=== PATIENT | female | born 1960 | race Caucasian/White ===

== ENCOUNTER 2024-07-06 17:10 | Inpatient (IN) | payer OTHER, MEDICARE, SELFPAY ==
[2024-07-06] VITALS (19 sets, daily range): BP systolic 97–177; BP diastolic 68–97; PULSE 60–91; TEMP 36.4–36.6; O2SAT 86–100; BMI 25.2; BMI 26.3
--- NOTE | 2024-07-06 11:31 | XR_ITS ---
The [address] [address] Patient Name: NETO GASTON MRN: [id number] date: 1960 Sex: F Assigned Patient Location: ER Current Patient Location: ER Accession/Order Number: [id number] Exam Date: 07/06/2024 11:35 Report Date: 07/06/2024 11:57 At the request of: JULIETA BLACKWELL Procedure: XR hip LT 2V w/ pelvis EXAM: XR hip LT 2V w/ pelvis HISTORY: fall COMPARISON: None. TECHNIQUE: AP pelvis and AP and crosstable lateral views of the left hip performed. FINDINGS: There is an acute mildly impacted intertrochanteric fracture of the left femur. Both hip joints are maintained. The lower lumbar spine, sacrum and bilateral sacral joints are unremarkable. There are degenerative changes at the symphysis which is otherwise unremarkable. XR/XR hip LT 2V w/ pelvis IMPRESSION: There is an acute mildly impacted intertrochanteric fracture of the left femur. Electronically authenticated by: JOSE MARIA MEAD Date: 07/06/2024 11:57
--- NOTE | 2024-07-06 11:32 | ED.LOWEXI1 ---
HPI HPI - Extremity Injury (Lower) General Chief Complaint: Extremity Injury, Lower Stated Complaint: FELL ON LEFT HIP Time Seen by Provider: 07/06/24 11:28 Source: patient Mode of arrival: ambulance Limitations: no limitations History of Present Illness HPI Narrative: 64-year-old female presents to the emergency department for pain to her left hip. She slipped shoveling some snow today and landed on her hip. No other injury, she did not hit her head. She was transported here by paramedics and this happened just before coming into the emergency department. Related Data Home Medications ?Medication ?Instructions ?Recorded ?Confirmed atorvastatin 40 mg tablet 40 mg PO DAILY 07/06/24 07/06/24 gabapentin 100 mg capsule 200 mg PO BEDTIME 07/06/24 07/06/24 losartan 25 mg tablet 25 mg PO DAILY 07/06/24 07/06/24 metformin 500 mg tablet 1,000 mg PO BID 07/06/24 07/06/24 Allergies Allergy/AdvReac Type Severity Reaction Status Date / Time No Known Drug Allergies Allergy Verified 07/06/24 11:25 Opioid HPI Opioid Management Most Recent Pain and Opioid Data: Last Pain Scale 6 07/06/24 11:36 07/06/24 Review of Systems ROS Narrative A ten point review of systems is negative except as noted above. PFSH PFSH Social History Little interest or pleasure in doing things: not at all Feeling down, depressed, or hopeless: not at all Exam Narrative Exam Narrative: Nurses note and vital signs reviewed and patient is not hypoxic. General: The patient appears in no apparent distress. Skin: Warm, dry, no pallor noted. There is no rash noted. Head: Normocephalic, atraumatic Eye: Normal conjunctiva, no drainage Ears, Nose, Mouth, and Throat: oral mucosa is moist. Nares patent. Cardiovascular: Regular Rate and Rhythm Respiratory: Patient is in no distress, no accessory muscle use, lungs are clear to auscultation, no wheezing, rales or rhonchi Back: non-tender GI: Soft and nontender Musculoskeletal: Both hips and both knees are flexed. No obvious deformity in the hip Neurological: A&O, normal speech Psychiatric: Cooperative Constitutional Vital Signs, click to edit/add: Last Vital Signs Temp 97.7 F 07/06/24 11:26 Pulse 75 07/06/24 11:26 Resp 16 07/06/24 11:26 BP 162/83 H 07/06/24 11:26 Pulse Ox 100 07/06/24 11:26 O2 Del Method Room Air 07/06/24 11:26 Course Vital Signs Vital signs: Vital Signs Temperature 97.7 F 07/06/24 11:26 Pulse Rate 75 07/06/24 11:26 Respiratory Rate 16 07/06/24 11:26 Blood Pressure 162/83 H 07/06/24 11:26 Pulse Oximetry 100 07/06/24 11:26 Oxygen Delivery Method Room Air 07/06/24 11:26 Temperature 97.7 F 07/06/24 11:26 Pulse Rate 75 07/06/24 11:26 Respiratory Rate 16 07/06/24 11:26 Blood Pressure 162/83 H 07/06/24 11:26 Pulse Oximetry 100 07/06/24 11:26 Oxygen Delivery Method Room Air 07/06/24 11:26 MDM - Extremity Injury (Lower) MDM Narrative Medical decision making narrative: Left hip fracture is identified, intertrochanteric. She will be admitted for presumed operative repair. Blood work ordered and pending and she was given IV morphine for pain. Findings were discussed with the patient. Differential Diagnosis Differential diagnosis: Likely other (Hip fracture, hip contusion) Imaging Data Left hip x-ray: Radiologist's impression: ITS Impressions Hip/Pelvis X-Ray 07/06/24 11:31 IMPRESSION: There is an acute mildly impacted intertrochanteric fracture of the left femur. Electronically authenticated by: JOSE MARIA MEAD Date: 07/06/2024 11:57 Discharge Plan Discharge Chief Complaint: Extremity Injury, Lower Clinical Impression: Closed left hip fracture Patient Disposition: Admitted As Inpatient Time of Disposition Decision: 12:06 Condition: Fair
--- NOTE | 2024-07-06 12:04 | ECG_ITS ---
The [facility] Test Date: 2024-07-06 Pat Name: NETO GASTON Department: Room: - Gender: Female [employer]: : 1960 Requested By: [id number] Order Number: [id number] Reading MD: JASMIN MENDEZ Measurements Intervals [place] Rate: 74 P: 68 MO: 158 QRS: 63 QRSD: 82 T: 63 QT: 392 QTc: 419 Interpretive Statements 1100 Sinus rhythm 9110 normal ECG No previous ECG available for comparison Electronically Signed On 07-06-2024 20:27:51 EST by JASMIN MENDEZ
[2024-07-06] MEDS: MORPHINE SULFATE 4 MG/ML VIAL IV (12:20)
[2024-07-06 12:22] LABS: Basophils Percent Auto 0.3 % (0.2-2.0); Hematocrit 31.8 % (36.0-48.0); Hemoglobin 10.7 g/dL (12.0-16.0); Immature Granulocytes Abs Auto 0.02 10^3/uL (0.00-0.03); Immature Granulocytes Pct Auto 0.3 % (0.0-0.5); Lymphocytes Absolute Auto 1.2 10^3/uL (1.2-3.8); Lymphocytes Percent Auto 14.9 % (20.5-60.0); Mean Corpuscular HGB Conc 33.6 g/dL (29.9-35.2); Mean Corpuscular Hemoglobin 29.8 pg (26.7-34.0); Mean Corpuscular Volume 88.6 fL (81.0-99.0); Mean Platelet Volume 10.8 fL (9.5-13.5); Monocytes Absolute Auto 0.4 10^3/uL (0.3-0.8); Monocytes Percent Auto 5.4 % (1.7-12.0); Neutrophils Absolute Auto 6.1 10^3/uL (1.4-6.5); Neutrophils Percent Auto 79.1 % (43.0-75.0); Platelet Count 183 10^3/uL (150-450); Red Blood Count 3.59 10^6/uL (4.20-5.40); Red Cell Distribution Width 12.6 % (11.0-15.0); White Blood Count 7.8 10^3/uL (4.0-11.0)
[2024-07-06 12:36] LABS: Anion Gap 14.8; BUN Creatinine Ratio 15.5; Calcium 9.2 mg/dL (8.5-10.1); Carbon Dioxide 26.2 mmol/L (21.0-32.0); Chloride 101 mmol/L (98-107); Estimated GFR (African America 50 (>=60 mL/min/1.73m^2); Estimated GFR (Non-African Ame 41 (>=60 mL/min/1.73m^2); Glucose 139 mg/dL (74-106); Sodium 138 mmol/L (136-145)
[2024-07-06 12:51] LABS: INR 1.03; Partial Thromboplastin Time 23.4 sec (22.3-36.2); Prothrombin Time 10.9 sec (9.0-11.6)
[2024-07-06] MEDS: LACTATED RINGER'S SOLUTION 1,000 ML 100 ML IV ×2 (13:11→23:57)
--- NOTE | 2024-07-06 14:01 | P.HP_ITS ---
HPI H&P: HPI History of Present Illness Chief complaint: FELL ON LEFT HIP Narrative: 64 y o female fell while shoveling snow. She could not get up afterwards and was brought over via EMS. Patient denies head trauma, LOC. Her only complaint was left hip pain and work up in ED revealed mildly impacted intertrochanteric fracture. Orthopedic consulted and patient is scheduled for Orthopedic surgery today. Patient's past medical, surgical and social hx reviewed. She denies any r ecent surgery and last time she required anesthesia was during C section over 20 years ago. She denies hx of CAD/CHF or CVA. She is at low risk of MACE and is medically cleared to proceed with Surgery. Opioid HPI Opioid Management Most Recent Pain and Opioid Data: Last Pain Scale 6 07/06/24 12:20 07/06/24 Last MAR Pain Assessment 07/06/24 12:20 Review of Systems ROS Status of ROS 10 or more systems reviewed and unremark able except as noted in history and below PFSH [facility] Medical History (Updated 07/06/24 @ 14:06 by Shaikh Axel MD) HLD (hyperlipidemia) ?E78.5 - Hyperlipidemia, unspecified (ICD-10) Type 2 diabetes mellitus ?E11.9 - Type 2 diabetes mellitus without complications (ICD-10) HTN (hypertension) ?I10 - Essential (primary) hypertension (ICD-10) Surgical History (Updated 07/06/24 @ 14:05 by Shaikh Axel MD) H/O: ?Z98.891 - History of uterine scar from previous surgery (ICD-10) Social History (Updated 07/06/24 @ 14:06 by Shaikh Axel MD) Within the past year, how often did you have a drink containing alcohol: never Within the past year, how many standard drinks containing alcohol did you have on a typical day: 1 or 2 Within the past year, how often did you have six or more drinks on one occasion: never Total score: 0 Score interpretation: A score less than 3 is consistent with normal alcohol consumption. Smoking status: Never smoker Non-prescribed substance use: denies use Little interest or pleasure in doing things: not at all Feeling down, depressed, or hopeless: not at all Meds Home Medications and Allergies Home Medications ?Medication ?Instructions ?Recorded ?Confirmed ?Type atorvastatin 40 mg tablet 40 mg PO DAILY 07/06/24 07/06/24 History gabapentin 100 mg capsule 200 mg PO BEDTIME 07/06/24 07/06/24 History losartan 25 mg tablet 25 mg PO DAILY 07/06/24 07/06/24 History metformin 500 mg tablet 1,000 mg PO BID 07/06/24 07/06/24 History Allergies Allergy/AdvReac Type Severity Reaction Status Date / Time No Known Drug Allergies Allergy Verified 07/06/24 11:25 Exam Constitutional Vital Signs, click to edit/add: Last Vital Signs Temp 97.7 F 07/06/24 11:26 Pulse 75 07/06/24 13:20 Resp 13 07/06/24 13:20 BP 162/89 H 07/06/24 13:16 Pulse Ox 100 07/06/24 11:26 O2 Del Method Room Air 07/06/24 11:26 Documenting provider has reviewed patient's vital signs: yes Common normals: no apparent distress and oriented x3 General appearance: cooperative HENMT Common normals: normocephalic and head/scalp atraumatic Head and scalp: normocephalic and atraumatic Eye Common normals: conjunctivae normal and no scleral icterus Conjunctiva: conjunctiva(e) normal Respiratory Common normals: normal respiratory effort and clear to auscultation bilaterally Effort & inspection: able to speak in complete sentences Auscultation: clear to auscultation bilaterally Cardio Common normals: regular rate, S1 normal heart sound and S2 normal heart sound Rate: regular rate Heart sounds: S1 normal and S2 normal GI Common normals: Normal to inspection, nondistended, normoactive bowel sounds present, soft to palpation, non-tender and no hepatosplenomegaly Palpation: soft and no hepatosplenomegaly Neuro Common normals: oriented x3, moves all extremities and no focal motor deficits Psych Common normals: mental status grossly normal, denies hallucinations, denies homicidal ideation and denies suicidal ideation Results Labs Labs: Short CBC 07/06/24 Range/Units 12:10 WBC 7.8 (4.0-11.0) 10^3/uL Hgb 10.7 L (12.0-16.0) g/dL Hct 31.8 L (36.0-48.0) % Plt Count 183 (150-450) 10^3/uL BMP 07/06/24 12:10 Sodium 138 Potassium 4.0 Chloride 101 Carbon Dioxide 26.2 BUN 20.0 H Creatinine 1.29 H Glucose 139 H Calcium 9.2 Assessment and Plan Assessment and Plan (1) Intertrochanteric fracture of left femur: Qualifiers: Encounter type: subsequent encounter Fracture type: closed Fracture alignment: displaced Fracture healing: with routine healing Qualified Code(s): S72.142D - Displaced intertrochanteric fracture of left femur, subsequent e ncounter for closed fracture with routine healing (2) Fall: Qualifiers: Encounter type: subsequent encounter Qualified Code(s): W19.XXXD - Unspecified fall, subsequent encounter (3) Type 2 diabetes mellitus: Qualifiers: Diabetes mellitus intermodal owner operator truck driver insulin use: without intermodal owner operator truck driver use Diabetes mellitus complication status: without complication Qualified Code(s): E11.9 - Type 2 diabetes mellitus without complications (4) HTN (hypertension): Qualifiers: Hypertension type: primary hypertension Qualified Code(s): I10 - Essential (primary) hypertension (5) HLD (hyperlipidemia): Qualifiers: Hyperlipidemia type: unspecified Qualified Code(s): E78.5 - Hyperlipidemia, unspecified Plan Patient currently NPO. Pain is well controlled. Scheduled for surgery today. Resume home medications except for metformin. Started on SSI for T2 DM. PT/OT eval ordered. Answered patient's questions and concerns.
--- NOTE | 2024-07-06 14:55 | PM.ORCN ---
History of Present Illness HPI Consult date: 07/06/24 Consult reason: fracture Chief complaint: FELL ON LEFT HIP, LEFT HIP FRACTURE Narrative: Patient is a 64-year-old who slipped and fell while shoveling snow today. She landed on her left hip with inability to bear weight. She presented to the emergency room where x-rays revealed a left hip intertrochanteric fracture. The patient denies pain elsewhere. She denies head trauma or loss of consciousness. [facility] Medical History (Updated 07/06/24 @ 14:06 by Shaikh Axel MD) HLD (hyperlipidemia) ?E78.5 - Hyperlipidemia, unspecified (ICD-10) Type 2 diabetes mellitus ?E11.9 - Type 2 diabetes mellitus without complications (ICD-10) HTN (hypertension) ?I10 - Essential (primary) hypertension (ICD-10) Surgical History (Updated 07/06/24 @ 14:05 by Shaikh Axel MD) H/O: ?Z98.891 - History of uterine scar from previous surgery (ICD-10) Social History (Updated 07/06/24 @ 14:06 by Shaikh Axel MD) Within the past year, how often did you have a drink containing alcohol: never Within the past year, how many standard drinks containing alcohol did you have on a typical day: 1 or 2 Within the past year, how often did you have six or more drinks on one occasion: never Total score: 0 Score interpretation: A score less than 3 is consistent with normal alcohol consumption. Smoking status: Never smoker Non-prescribed substance use: denies use Little interest or pleasure in doing things: not at all Feeling down, depressed, or hopeless: not at all Meds Home Medications and Allergies Home Medications ?Medication ?Instructions ?Recorded ?Confirmed ?Type atorvastatin 40 mg tablet 40 mg PO DAILY 07/06/24 07/06/24 History gabapentin 100 mg capsule 200 mg PO BEDTIME 07/06/24 07/06/24 History losartan 25 mg tablet 25 mg PO DAILY 07/06/24 07/06/24 History metformin 500 mg tablet 1,000 mg PO BID 07/06/24 07/06/24 History Allergies Allergy/AdvReac Type Severity Reaction Status Date / Time No Known Drug Allergies Allergy Verified 07/06/24 11:25 Exam Narrative Exam Narrative: On exam she is in no obvious distress. Left leg is shortened and rotated. Skin is intact. Pain with logroll to the left hip. No knee or ankle tenderness. Grossly neurovascularly intact. Right lower extremity has painless range of motion. Bilateral upper extremities have painless range of motion. Constitutional Vital Signs, click to edit/add: Last Vital Signs Temp 97.7 F 07/06/24 11:26 Pulse 75 07/06/24 13:20 Resp 13 07/06/24 13:20 BP 162/89 H 07/06/24 13:16 Pulse Ox 100 07/06/24 11:26 O2 Del Method Room Air 07/06/24 11:26 Results Labs Labs: Abnormal lab results 07/06/24 Range/Units 12:10 RBC 3.59 L (4.20-5.40) 10^6/uL Hgb 10.7 L (12.0-16.0) g/dL Hct 31.8 L (36.0-48.0) % Neut % (Auto) 79.1 H (43.0-75.0) % Lymph % (Auto) 14.9 L (20.5-60.0) % Eos % (Auto) 0.0 L (0.9-7.0) % BUN 20.0 H (7.0-18.0) mg/dL Creatinine 1.29 H (0.55-1.02) mg/dL Est GFR ( Amer) 50 L (>=60 mL/min/1.73m^2) Est GFR (Non-Af Amer) 41 L (>=60 mL/min/1.73m^2) Glucose 139 H (74-106) mg/dL H & H 07/06/24 Range/Units 12:10 Hgb 10.7 L (12.0-16.0) g/dL Hct 31.8 L (36.0-48.0) % Coagulation 07/06/24 Range/Units 12:10 INR 1.03 All other labs normal. Diagnostic results Hip x-ray: image reviewed (Left hip x-rays were reviewed and show a displaced intertrochanteric left hip fracture) Assessment and Plan Assessment and Plan (1) Intertrochanteric fracture of left femur: Qualifiers: Encounter type: subsequent encounter Fracture type: closed Fracture alignment: displaced Fracture healing: with routine healing Qualified Code(s): S72.142D - Displaced intertrochanteric fracture of left femur, subsequent encounter for closed fracture with routine healing (2) Fall: Qualifiers: Encounter type: subsequent encounter Qualified Code(s): W19.XXXD - Unspecified fall, subsequent encounter (3) Type 2 diabetes mellitus: Qualifiers: Diabetes mellitus [facility] insulin use: without termite technician use Diabetes mellitus complication status: without complication Qualified Code(s): E11.9 - Type 2 diabetes mellitus without complications (4) HTN (hypertension): Qualifiers: Hypertension type: primary hypertension Qualified Code(s): I10 - Essential (primary) hypertension (5) HLD (hyperlipidemia): Qualifiers: Hyperlipidemia type: unspecified Qualified Code(s): E78.5 - Hyperlipidemia, unspecified Plan I have discussed the patient's injury with her and I recommended a left hip intramedullary nailing. I discussed risks of this procedure as well as benefits. She understands risks including but not limited to risk of persistent postoperative pain, need for additional surgery as well as additional risks and the informed consent process. She understands and has elected to proceed.
[2024-07-06] MEDS: CEFAZOLIN SODIUM/DEXTROSE,ISO 2 GM/50 ML PIGGYBACK IV ×2 (14:57→22:04)
--- NOTE | 2024-07-06 16:37 | PM.ORPRC ---
Procedure Note Date of procedure: 07/06/24 Pre-op diagnosis: Left hip intertrochanteric fracture Post-op diagnosis: same as pre-op Procedure: Procedure Note Procedure(s): Left hip intramedullary nailing Detailed Description of Procedure: After informed consent was obtained the patient was brought to the operating room where general anesthetic was administered. Preoperatively regional block was placed. Patient was placed on the fracture table and using traction and manipulation reduction was performed and confirmed on multiple fluoroscopy views. The left hip and leg were prepped and draped in the usual sterile fashion. A 4 cm incision was made proximal to the greater trochanter in line with the femur. Hemostasis achieved with Bovie. Fascia was incised in line with the incision. The guidepin for the Synthes TFNa was placed on the greater trochanter and the appropriate position on the AP and lateral planes and then advanced and then overreamed in the intertrochanteric region. The Synthes short nail was sized to 10 mm in diameter and the nail was then placed. Through a more distal incision the guidepin was placed in the appropriate position in the femoral head. This was measured, overreamed and then the 100 millimeter spiral blade was placed locked into position and then a half turn counterclockwise was placed to allow for compression. The fracture was compressed. Through the more distal incision the locking screw was placed in the standard fashion. Final x-rays in multiple views revealed a reduced hip fracture with appropriate implant placement and lengths. Wounds were irrigated. Fascia was repaired with nonabsorbable suture. Skin was closed in standard fashion in layers. Sterile dressing was placed. Patient was awakened and brought to the recovery room in stable condition. There were no intraoperative or immediate postoperative complications. Anesthesia: spinal Surgeon: Jonas Adrian Estimated blood loss (mL): 50 Urine output (mL): 800 Pathology: none sent Condition: stable Disposition: PACU
[2024-07-06] MEDS: OXYCODONE HCL 5 MG TABLET PO (19:50)
[2024-07-06] MEDS: GABAPENTIN 100 MG CAPSULE 200 MG PO (21:01)
[2024-07-06] MEDS: MORPHINE SULFATE 2 MG/ML SYRINGE IV (21:01)
[2024-07-06] MEDS: ATORVASTATIN CALCIUM 40 MG TABLET PO (21:01)
[2024-07-07] VITALS (9 sets, daily range): BP systolic 100–122; BP diastolic 63–73; PULSE 71–96; TEMP 36.5–37.1; O2SAT 85–99
[2024-07-07] MEDS: ACETAMINOPHEN 325 MG TABLET 650 MG PO ×3 (03:34→15:21)
[2024-07-07] MEDS: OXYCODONE HCL 5 MG TABLET PO ×3 (03:35→15:21)
[2024-07-07] MEDS: CEFAZOLIN SODIUM/DEXTROSE,ISO 2 GM/50 ML PIGGYBACK IV ×2 (06:01→15:18)
[2024-07-07 06:14] LABS: Basophils Percent Auto 0.4 % (0.2-2.0); Eosinophils Absolute Auto 0.2 10^3/uL (0.0-0.7); Eosinophils Percent Auto 2.6 % (0.9-7.0); Hematocrit 24.6 % (36.0-48.0); Hemoglobin 8.2 g/dL (12.0-16.0); Immature Granulocytes Abs Auto 0.02 10^3/uL (0.00-0.03); Immature Granulocytes Pct Auto 0.4 % (0.0-0.5); Lymphocytes Absolute Auto 1.3 10^3/uL (1.2-3.8); Mean Corpuscular HGB Conc 33.3 g/dL (29.9-35.2); Mean Corpuscular Hemoglobin 29.4 pg (26.7-34.0); Mean Corpuscular Volume 88.2 fL (81.0-99.0); Mean Platelet Volume 10.3 fL (9.5-13.5); Monocytes Absolute Auto 0.6 10^3/uL (0.3-0.8); Monocytes Percent Auto 9.7 % (1.7-12.0); Neutrophils Absolute Auto 3.7 10^3/uL (1.4-6.5); Neutrophils Percent Auto 64.9 % (43.0-75.0); Platelet Count 168 10^3/uL (150-450); Red Blood Count 2.79 10^6/uL (4.20-5.40); Red Cell Distribution Width 12.6 % (11.0-15.0); White Blood Count 5.7 10^3/uL (4.0-11.0)
[2024-07-07 06:34] LABS: Alanine Aminotransferase 24 U/L (14-59); Albumin Globulin Ratio 1.3; Albumin Level 3.2 g/dL (3.4-5.0); Alkaline Phosphatase 71 U/L (46-116); Anion Gap 12.2; Aspartate Amino Transferase 19 U/L (15-37); BUN Creatinine Ratio 15.3; Bilirubin Total 0.6 mg/dL (0.2-1.0); Calcium 8.4 mg/dL (8.5-10.1); Carbon Dioxide 27.2 mmol/L (21.0-32.0); Chloride 104 mmol/L (98-107); Estimated GFR (African America 60 (>=60 mL/min/1.73m^2); Estimated GFR (Non-African Ame 49 (>=60 mL/min/1.73m^2); Globulin 2.5 g/dL; Glucose 115 mg/dL (74-106); Potassium 4.4 mmol/L (3.5-5.1); Sodium 139 mmol/L (136-145); Total Protein 5.7 g/dL (6.4-8.2)
--- NOTE | 2024-07-07 06:35 | PM.ORPN ---
Progress Note: A&P Assessment and Plan (1) Intertrochanteric fracture of left femur: Assessment and Plan: POD #1 left hip IM nail, displaced left intertrochanteric femur fracture -WBAT -Acute blood loss anemia after fracture and surgery, Hgb 8.2 this a.m. from 10.7, vital stable overnight -PT evaluation -DVT prophylaxis -Pain control per hospitalist -Follow-up in [address] Adrian Plan discussed with my supervising physician, Dr. Adrian. Qualifiers: Encounter type: subsequent encounter Fracture alignment: displaced Fracture healing: with routine healing Fracture type: closed Qualified Code(s): S72.142D - Displaced intertrochanteric fracture of left femur, subsequent encounter for closed fracture with routine healing (2) Fall: Qualifiers: Encounter type: subsequent encounter Qualified Code(s): W19.XXXD - Unspecified fall, subsequent encounter Subjective Subjective Interval history: Patient is POD #1 left hip IM nail and doing well. Patient's pain was controlled overnight. She denies any other complaints this morning. Exam Narrative Exam Narrative: Exam patient is in no distress laying in the bed, awakens easily to voice, in no distress. On inspection dressing is clean/dry/intact. Thigh and calf compartments are soft and compressible. 5/5 dorsi flexion/plantarflexion. 2+ DP pulses palpated bilaterally. Sensation intact with light touch distally to bilateral lower extremities. Constitutional Vital Signs, click to edit/add: Last Vital Signs Temp 98.7 F 07/07/24 03:31 Pulse 86 07/07/24 03:31 Resp 16 07/07/24 03:31 BP 119/73 07/07/24 03:31 Pulse Ox 96 07/07/24 03:31 O2 Del Method Room Air 07/07/24 03:31 O2 Flow Rate 2 07/06/24 22:09 Urinary Catheter Management Urinary Catheter Management Urethral: Cath placed during this visit: no
[2024-07-07] MEDS: LOSARTAN POTASSIUM 25 MG TABLET PO (08:12)
[2024-07-07] MEDS: ONDANSETRON PF 4 MG/2 ML VIAL IV (08:12)
--- NOTE | 2024-07-07 10:19 | CM.NOTE ---
Rounds made with Dr. Reyna, PT and OT will evaluate pt today for discharge planning. Pt does states her shower and bedroom are upstairs and she has concerns with returning to home. No discharge today.
[2024-07-07] MEDS: LACTATED RINGER'S SOLUTION 1,000 ML 100 ML IV ×2 (10:45→20:57)
[2024-07-07 11:57] LABS: Glucometer 257 mg/dL (74-106)
--- NOTE | 2024-07-07 11:58 | P.IMPN_ITS ---
Progress Note: A&P Assessment and Plan (1) Intertrochanteric fracture of left femur: Assessment and Plan: s/p surgery. POD #1. Post op care as per orthopedics. Pain is reasonably controlled. PT/OT eval. Will need rehab Qualifiers: Encounter type: subsequent encounter Fracture type: closed Fracture alignment: displaced Fracture healing: with routine healing Qualified Code(s): S72.142D - Displaced intertrochanteric fracture of left femur, subsequent encounter for closed fracture with routine healing (2) Fall: Assessment and Plan: Mechanical fall resulting in Hip fx. S/p surgery. 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 c/w home medications Qualifiers: Hypertension type: primary hypertension Qualified Code(s): I10 - Essential (primary) hypertension (6) Postoperative anemia: Assessment and Plan: p/w Hb of 10, down to 8 post operatively. Monitor. Internal Medicine - PN: Subj Subjective Interval history: Seen and examined. No overnight events. Reports post op pain buts its manageable. Exam Constitutional Vital Signs, click to edit/add: Last Vital Signs Temp 97.7 F 07/07/24 08:00 Pulse 71 07/07/24 08:00 Resp 18 07/07/24 08:00 BP 108/65 07/07/24 08:00 Pulse Ox 93 L 07/07/24 11:01 O2 Del Method Room Air 07/07/24 11:01 O2 Flow Rate 2 07/06/24 22:09 Documenting provider has reviewed patient's vital signs: yes Common normals: no apparent distress and oriented x3 General appearance: cooperative Respiratory Common normals: normal respiratory effort and clear to auscultation bilaterally Effort & inspection: able to speak in complete sentences Auscultation: clear to auscultation bilaterally Cardio Common normals: regular rate, S1 normal heart sound and S2 normal heart sound Rate: regular rate Heart sounds: S1 normal and S2 normal Neuro Common normals: oriented x3, moves all extremities and no focal motor deficits Psych Common normals: mental status grossly normal, denies hallucinations, denies homicidal ideation and denies suicidal ideation Internal Medicine - PN: Obj Da Labs Labs: Laboratory Results - last 24 hr 07/06/24 07/07/24 12:10 06:02 WBC 7.8 5.7 RBC 3.59 L 2.79 L Hgb 10.7 L 8.2 L Hct 31.8 L 24.6 L MCV 88.6 88.2 MCH 29.8 29.4 MCHC 33.6 33.3 RDW 12.6 12.6 Plt Count 183 168 MPV 10.8 10.3 Neut % (Auto) 79.1 H 64.9 Lymph % (Auto) 14.9 L 22.0 [place] % (Auto) 5.4 9.7 Eos % (Auto) 0.0 L 2.6 Baso % (Auto) 0.3 0.4 Neut # (Auto) 6.1 3.7 Lymph # (Auto) 1.2 1.3 [place] # (Auto) 0.4 0.6 Eos # (Auto) 0.0 0.2 Baso # (Auto) 0.0 0.0 Abs Immat Gran (auto) 0.02 0.02 Imm/Tot Granulo (auto) 0.3 0.4 PT 10.9 INR 1.03 APTT 23.4 Sodium 138 139 Potassium 4.0 4.4 Chloride 101 104 Carbon Dioxide 26.2 27.2 Anion Gap 14.8 12.2 BUN 20.0 H 17.0 Creatinine 1.29 H 1.11 H Est GFR ( Amer) 50 L 60 Est GFR (Non-Af Amer) 41 L 49 L BUN/Creatinine Ratio 15.5 15.3 Glucose 139 H 115 H Calcium 9.2 8.4 L Total Bilirubin 0.6 AST 19 ALT 24 Alkaline Phosphatase 71 Total Protein 5.7 L Albumin 3.2 L Globulin 2.5 Albumin/Globulin Ratio 1.3 Urinary Catheter Management Urinary Catheter Management Urethral: Cath placed during this visit: no
[2024-07-07] MEDS: INSULIN ASPART 300 UNIT/3 ML PEN SUBQ ×2 (12:04→22:15)
[2024-07-07] MEDS: DOCUSATE SODIUM 100 MG CAPSULE PO (12:04)
--- NOTE | 2024-07-07 14:50 | SWNOTE1 ---
ALONSO met with pt to discuss dc needs. Pt lives at home and her daughter lives with her. Her daughter is in and out as she has a job and a boyfriend that lives out of town. Pt was still working and had this fall at work. Pt does feel she needs to go to rehab. She stated her bathroom is on the second floor. Pt would like any facility in [place] where she lives. SW let her know that there is [facility], [place], and [place]. She stated a gnosticist friend mentioned [facility]. SW will try that one first and then go down the list. Pt agreeable. ALONSO did inform patient that SW is not sure how rehab works with workers comp. SW is going to try to get rehab under her workers comp, but unsure what the facility will say. Pt does have her work insurance and Medicare Part A. ALONSO called [facility] and they now do a central intake that reviews referral. ALONSO called and spoke to someone at central intake. She stated they have done [facility] for rehab in past and they can review. Referral sent to [facility]. Referral included face sheet, ED note, H&P, provider notes, case management report, ortho consult and ortho notes, nursing notes, diagnostic imaging, med list, and PT/OT notes.
--- NOTE | 2024-07-07 16:17 | SWNOTE1 ---
ALONSO received a call back from Ale in admissions at [facility]. She stated they are able to accept pt and skill her under her [facility]. She initially stated that I will need to complete C-9 form, but she called back and they will complete C-9 form and submit. They will need to know the welfare case worker from [facility] name and phone number and the agenct she works for. Once they have that information they will call welfare case worker to get things started. [facility] will also need a case #. ALONSO to call HR of pt's employer again tomorrow. Case management left message today and they did not call back.
[2024-07-07 17:03] LABS: Glucometer 118 mg/dL (74-106)
[2024-07-07] MEDS: MORPHINE SULFATE 2 MG/ML SYRINGE IV (20:57)
[2024-07-07 21:03] LABS: Glucometer 293 mg/dL (74-106)
[2024-07-07] MEDS: ATORVASTATIN CALCIUM 40 MG TABLET PO (22:14)
[2024-07-07] MEDS: GABAPENTIN 100 MG CAPSULE 200 MG PO (22:14)
[2024-07-07] MEDS: ENOXAPARIN SODIUM 40 MG/0.4 ML SYRINGE SUBQ (22:15)
[2024-07-08] VITALS (8 sets, daily range): BP systolic 119–137; BP diastolic 73–78; PULSE 79–96; TEMP 36.4–37.2; O2SAT 90–99
[2024-07-08] MEDS: ACETAMINOPHEN 325 MG TABLET 650 MG PO ×4 (01:35→21:24)
[2024-07-08] MEDS: OXYCODONE HCL 5 MG TABLET PO ×4 (01:35→21:24)
[2024-07-08] MEDS: LACTATED RINGER'S SOLUTION 1,000 ML 100 ML IV (06:02)
[2024-07-08 06:20] LABS: Basophils Percent Auto 0.3 % (0.2-2.0); Eosinophils Absolute Auto 0.2 10^3/uL (0.0-0.7); Eosinophils Percent Auto 2.6 % (0.9-7.0); Hematocrit 25.5 % (36.0-48.0); Hemoglobin 8.3 g/dL (12.0-16.0); Immature Granulocytes Abs Auto 0.01 10^3/uL (0.00-0.03); Immature Granulocytes Pct Auto 0.2 % (0.0-0.5); Lymphocytes Absolute Auto 1.4 10^3/uL (1.2-3.8); Lymphocytes Percent Auto 22.5 % (20.5-60.0); Mean Corpuscular HGB Conc 32.5 g/dL (29.9-35.2); Mean Corpuscular Hemoglobin 29.6 pg (26.7-34.0); Mean Corpuscular Volume 91.1 fL (81.0-99.0); Mean Platelet Volume 10.6 fL (9.5-13.5); Monocytes Absolute Auto 0.6 10^3/uL (0.3-0.8); Neutrophils Percent Auto 65.4 % (43.0-75.0); Platelet Count 143 10^3/uL (150-450); Red Cell Distribution Width 12.9 % (11.0-15.0); White Blood Count 6.1 10^3/uL (4.0-11.0)
[2024-07-08 07:08] LABS: Alanine Aminotransferase 24 U/L (14-59); Alkaline Phosphatase 73 U/L (46-116); Anion Gap 11.3; Aspartate Amino Transferase 24 U/L (15-37); BUN Creatinine Ratio 15.7; Bilirubin Total 0.5 mg/dL (0.2-1.0); Calcium 8.5 mg/dL (8.5-10.1); Carbon Dioxide 29.1 mmol/L (21.0-32.0); Chloride 105 mmol/L (98-107); Estimated GFR (African America >60 (>=60 mL/min/1.73m^2); Estimated GFR (Non-African Ame 51 (>=60 mL/min/1.73m^2); Globulin 2.9 g/dL; Glucose 135 mg/dL (74-106); Potassium 4.4 mmol/L (3.5-5.1); Sodium 141 mmol/L (136-145); Total Protein 5.9 g/dL (6.4-8.2)
[2024-07-08] MEDS: LOSARTAN POTASSIUM 25 MG TABLET PO (08:12)
--- NOTE | 2024-07-08 10:26 | SWNOTE1 ---
ALONSO called pt's HR at her employer and left message. [facility] is not able to move forward with SNF until pt's employer returns our call and gives us the information that [facility] needs to move forward.
[2024-07-08 11:21] LABS: Glucometer 234 mg/dL (74-106)
--- NOTE | 2024-07-08 11:31 | CM.NOTE ---
Rounds made with Dr. Reyna. Dr. Reyna reviews plan of care. Awaiting information from employer. Namrata verbalizes understanding and will try to call employer HR department.
--- NOTE | 2024-07-08 11:38 | PM.IMPN1 ---
Progress Note: A&P Assessment and Plan (1) Intertrochanteric fracture of left femur: Assessment and Plan: s/p surgery. POD #2. Post op care as per orthopedics. Awaiting approval from insurance to go to rehab Qualifiers: Encounter type: subsequent encounter Fracture type: closed Fracture alignment: displaced Fracture healing: with routine healing Qualified Code(s): S72.142D - Displaced intertrochanteric fracture of left femur, subsequent encounter for closed fracture with routine healing (2) Fall: Assessment and Plan: Mechanical fall resulting in Hip fx. S/p surgery. Pain is controlled. Paticipating in PT. Qualifiers: Encounter type: subsequent encounter Qualified Code(s): W19.XXXD - Unspecified fall, subsequent encounter (3) HLD (hyperlipidemia): Assessment and Plan: c/w statin Qualifiers: Hyperlipidemia type: unspecified Qualified Code(s): E78.5 - Hyperlipidemia, unspecified (4) Type 2 diabetes mellitus: Assessment and Plan: SSI while inpatient Qualifiers: Diabetes mellitus correction insulin use: without termite treater helper use Diabetes mellitus complication status: without complication Qualified Code(s): E11.9 - Type 2 diabetes mellitus without complications (5) HTN (hypertension): Assessment and Plan: Stable BP. c/w home medications Qualifiers: Hypertension type: primary hypertension Qualified Code(s): I10 - Essential (primary) hypertension (6) Postoperative anemia: Assessment and Plan: p/w Hb of 10, down to 8 post operatively. Monitor. Stable. She will need outpatient w/u for anemia given her age. Internal Medicine - PN: Subj Subjective Interval history: Seen and examined. No overnight events. Pain is well controlled. Participating in PT. Exam Constitutional Vital Signs, click to edit/add: Last Vital Signs Temp 98.9 F 07/08/24 08:07 Pulse 93 H 07/08/24 08:07 Resp 18 07/08/24 08:07 BP 119/73 07/08/24 08:07 Pulse Ox 96 07/08/24 09:15 O2 Del Method Room Air 07/08/24 09:15 O2 Flow Rate 1 07/08/24 06:00 Documenting provider has reviewed patient's vital signs: yes Common normals: no apparent distress and oriented x3 General appearance: cooperative Internal Medicine - PN: Obj Da Labs Labs: Laboratory Results - last 24 hr 07/07/24 07/07/24 07/07/24 11:56 16:51 21:02 WBC RBC Hgb Hct MCV MCH MCHC RDW Plt Count MPV Neut % (Auto) Lymph % (Auto) [place] % (Auto) Eos % (Auto) Baso % (Auto) Neut # (Auto) Lymph # (Auto) [place] # (Auto) Eos # (Auto) Baso # (Auto) Abs Immat Gran (auto) Imm/Tot Granulo (auto) Sodium Potassium Chloride Carbon Dioxide Anion Gap BUN Creatinine Est GFR ( Amer) Est GFR (Non-Af Amer) BUN/Creatinine Ratio Glucose Calcium Total Bilirubin AST ALT Alkaline Phosphatase Total Protein Albumin Globulin Albumin/Globulin Ratio POC Glucose 257 H 118 H 293 H 07/08/24 07/08/24 07/08/24 06:03 06:09 11:20 WBC 6.1 RBC 2.80 L Hgb 8.3 L Hct 25.5 L MCV 91.1 MCH 29.6 MCHC 32.5 RDW 12.9 Plt Count 143 L MPV 10.6 Neut % (Auto) 65.4 Lymph % (Auto) 22.5 [place] % (Auto) 9.0 Eos % (Auto) 2.6 Baso % (Auto) 0.3 Neut # (Auto) 4.0 Lymph # (Auto) 1.4 [place] # (Auto) 0.6 Eos # (Auto) 0.2 Baso # (Auto) 0.0 Abs Immat Gran (auto) 0.01 Imm/Tot Granulo (auto) 0.2 Sodium 141 Potassium 4.4 Chloride 105 Carbon Dioxide 29.1 Anion Gap 11.3 BUN 17.0 Creatinine 1.08 H Est GFR ( Amer) >60 Est GFR (Non-Af Amer) 51 L BUN/Creatinine Ratio 15.7 Glucose 135 H Calcium 8.5 Total Bilirubin 0.5 AST 24 ALT 24 Alkaline Phosphatase 73 Total Protein 5.9 L Albumin 3.0 L Globulin 2.9 Albumin/Globulin Ratio 1.0 POC Glucose 234 H Urinary Catheter Management Urinary Catheter Management Urethral: Cath placed during this visit: no
--- NOTE | 2024-07-08 11:51 | REH.PTDLY ---
Physical Therapy Daily Note PT Daily Note/Assess Start: 07/07/24 08:10 Freq: Status: Active Protocol: Document 07/08/24 11:44 JUANY (Rec: 07/08/24 11:50 [id number] [id number]) Physical Therapy Daily Note/Assessment Time In 11:20 Time Out 11:34 Pain Level 7 Subjective Pt in bed upon arrival. States pain is fine right now as she hasn't moved around much yet this morning. Therapeutic Exercise 4 Minutes (minutes) Therapeutic Exercise 0 Units Therapeutic Exercise Cues for APs 10x palma feet. instructed in seated LAQ 10x Treatment palma LEs. Marching of R LE 10x, unable to march L LE due to pain. Therapeutic Activity 13 Minutes (minutes) Therapeutic Activity 1 Units Therapeutic Activity Pt performs bed mobility and transfers from supine to Comments sit with Min A. Sit to stand transfers Jennie with bed slightly elevated and cues for pt to push off from bed and not grab RW. Cues for gait to chair with RW with CGA 5 feet with pt only allowing toes to touch ground with gait and putting little weight thru L LE. Cues to reach back for chair upon sitting for safety and to slowly lower self into chair. Pt required Mod A with sit to stand from chair and cues for hand placement, pt unable to stand pushing off with Palma UEs from chair. Does better with 1 hand on chair and 1 hand on RW to stand upright. Total Therapy 17 Minutes Total Physical 1 Therapy Units Daily Note Summary Pt has improved transfers, but still requires Min A. Pt struggles with transfers out of chair the most today. Pt limits the amount of weight being transferred thru L LE. Rates pain as 7/10 with activity. Pt would benefit from SNF stay to regain strength and independent mobility prior to returning home.
[2024-07-08] MEDS: INSULIN ASPART 300 UNIT/3 ML PEN SUBQ ×3 (13:56→21:24)
--- NOTE | 2024-07-08 14:05 | SWNOTE1 ---
ALONSO received voicemail from Annabel pt's HR rep from employer. ALONSO called Annabel back. Annabel was able to go online and fill out first report on injury and get a claim number and phone numbers for the watch case polisher for the case that she has been speaking to. ALONSO called and provided this information to Ale at [facility]. Ale is calling her corporate to get things started so they can negotiate a grimaldo, she will call ALNOSO back once everything is completed. ALONSO did let her know that pt is medically stable for discharge.
--- NOTE | 2024-07-08 15:07 | OT.DAILY ---
Occupational Therapy Daily Note OT Inpatient Daily Visit Note Start: 07/07/24 11:01 Freq: Status: Active Protocol: Document 07/08/24 14:55 [id number] (Rec: 07/08/24 15:07 [id number]) OT Visit Details Time In/Time Out Time In 11:45 Time Out 11:56 Pain In Pain Level 7 OT Treatment Plan Subjective Subjective I am doing okay today Pt was pleased, ambulatory short distances with good endurance. Objective Objective Pt was sitting in chair. She walked from bedside to chair without complications. Reports pain in LLE when weight-bearing. Pt agreeable to self-care. With set-up of supplies Pt able to wash UB and comb hair. Pt applied anti-perspirant to underarms with good ROM. Pt not wanting to work on standing endurance due to LLE discomfort. Assessment Assessment Pt tolerated treatment well. Agreeable to self-care tasks with set-up only. Initiated and completed tasks I . Pt left in chair comfortably, call light within reach . Continue OT POC. OT [employer] Timed Codes Self-Snf 11 Management minutes ( minutes) Self-Snf 1 Management units
--- NOTE | 2024-07-08 15:32 | SWNOTE1 ---
ALONSO updated pt that ALONSO has spoken to HR and with [facility] and they have the information they need and there corporate office will speak with [facility] and negotiate pricing and [facility] will let ALONSO know when pt can go.
[2024-07-08 16:59] LABS: Glucometer 183 mg/dL (74-106)
[2024-07-08 20:17] LABS: Glucometer 214 mg/dL (74-106)
[2024-07-08] MEDS: ENOXAPARIN SODIUM 40 MG/0.4 ML SYRINGE SUBQ (21:23)
[2024-07-08] MEDS: GABAPENTIN 100 MG CAPSULE 200 MG PO (21:24)
[2024-07-08] MEDS: ATORVASTATIN CALCIUM 40 MG TABLET PO (21:24)
[2024-07-08] MEDS: MAALOX (MAG HYDROX/ALUMINUM HYD/SIMETH) 30 ML ORAL.SUSP PO (22:03)
[2024-07-09] MEDS: ACETAMINOPHEN 325 MG TABLET 650 MG PO ×2 (03:42→22:08)
[2024-07-09] MEDS: OXYCODONE HCL 5 MG TABLET PO ×2 (03:42→20:04)
[2024-07-09 04:36] VITALS: BP 135/78; PULSE 84; TEMP 36.6; O2SAT 90
[2024-07-09 06:20] LABS: Basophils Percent Auto 0.4 % (0.2-2.0); Eosinophils Absolute Auto 0.2 10^3/uL (0.0-0.7); Eosinophils Percent Auto 2.8 % (0.9-7.0); Hematocrit 24.3 % (36.0-48.0); Immature Granulocytes Abs Auto 0.02 10^3/uL (0.00-0.03); Immature Granulocytes Pct Auto 0.4 % (0.0-0.5); Lymphocytes Absolute Auto 1.3 10^3/uL (1.2-3.8); Lymphocytes Percent Auto 23.2 % (20.5-60.0); Mean Corpuscular HGB Conc 32.9 g/dL (29.9-35.2); Mean Corpuscular Hemoglobin 29.6 pg (26.7-34.0); Mean Platelet Volume 10.6 fL (9.5-13.5); Monocytes Absolute Auto 0.6 10^3/uL (0.3-0.8); Monocytes Percent Auto 9.9 % (1.7-12.0); Neutrophils Absolute Auto 3.6 10^3/uL (1.4-6.5); Neutrophils Percent Auto 63.3 % (43.0-75.0); Platelet Count 156 10^3/uL (150-450); Red Cell Distribution Width 12.9 % (11.0-15.0); White Blood Count 5.6 10^3/uL (4.0-11.0)
[2024-07-09 06:35] LABS: Alanine Aminotransferase 28 U/L (14-59); Albumin Globulin Ratio 0.9; Albumin Level 2.8 g/dL (3.4-5.0); Alkaline Phosphatase 86 U/L (46-116); Anion Gap 7.2; Aspartate Amino Transferase 27 U/L (15-37); BUN Creatinine Ratio 13.4; Bilirubin Total 0.5 mg/dL (0.2-1.0); Calcium 8.7 mg/dL (8.5-10.1); Chloride 105 mmol/L (98-107); Estimated GFR (African America 55 (>=60 mL/min/1.73m^2); Estimated GFR (Non-African Ame 45 (>=60 mL/min/1.73m^2); Globulin 3.1 g/dL; Glucose 157 mg/dL (74-106); Potassium 4.2 mmol/L (3.5-5.1); Sodium 141 mmol/L (136-145); Total Protein 5.9 g/dL (6.4-8.2)
[2024-07-09 09:00] VITALS: BP 136/83; PULSE 88; TEMP 36.5; O2SAT 93
[2024-07-09] MEDS: LOSARTAN POTASSIUM 25 MG TABLET PO (09:03)
--- NOTE | 2024-07-09 09:33 | SWNOTE1 ---
ALONSO spoke to Kiah at [facility] and she reached out to the corrections caseworker, Priya, from [facility] and she did not have the information yet, but she will call her back today and hopeful to have everything figured out today
--- NOTE | 2024-07-09 10:37 | REH.PTDLY ---
Physical Therapy Daily Note PT Daily Note/Assess Start: 07/07/24 08:10 Freq: Status: Active Protocol: Document 07/09/24 10:32 JUANY (Rec: 07/09/24 10:37 [id number] [id number]) Physical Therapy Daily Note/Assessment Time In 10:10 Time Out 10:24 Pain Level 3 Pain Level 6 Subjective Pt up in chair upon arrival, states she walked around bed earlier this morning. Pain is a 3/10 sitting in chair, has been awhile since having pain medicine. Therapeutic Exercise 4 Minutes (minutes) Therapeutic Exercise 0 Units Therapeutic Exercise instructed in seated B LE AP 10x, LAQ and marching on R Treatment LE 10x, LAQ on L LE 5x for strength. Therapeutic Activity 10 Minutes (minutes) Therapeutic Activity 1 Units Therapeutic Activity Sit to stand transfers CGA with Theron UEs pushing off Comments from arm of chair. Gait training with RW CGA and cues for hand placement on RW to avoid hands going too far forward. Pt ambulated 10 ft TTWB on L LE per pt preference due to increased pain. Attempted flat foot on ground, but this hurts too much per pt. Pt stops and takes several standing rest breaks. Cues with returning to sit with pt slowly lowering herself into chair, CGA. Total Therapy 14 Minutes Total Physical 1 Therapy Units Daily Note Summary Pt has improved sit to stand transfers in and out of chair, however increased pain today with gait causing limited distance. Pt unable to put full weight bearing onto L foot and performs TTWB with limited weight going thru L LE. Pt will need SNF stay to improve gait and work on stair training when pt is able.
--- NOTE | 2024-07-09 10:59 | P.IMPN_ITS ---
Progress Note: A&P Assessment and Plan (1) Intertrochanteric fracture of left femur: Assessment and Plan: s/p surgery. POD #3. Awaiting approval from insurance to go to rehab Qualifiers: Encounter type: subsequent encounter Fracture type: closed Fracture alignment: displaced Fracture healing: with routine healing Qualified Code(s): S72.142D - Displaced intertrochanteric fracture of left femur, subsequent encounter for closed fracture with routine healing (2) Fall: Assessment and Plan: Mechanical fall resulting in Hip fx. S/p surgery. Pain is controlled. Qualifiers: Encounter type: subsequent encounter Qualified Code(s): W19.XXXD - Unspecified fall, subsequent encounter (3) HLD (hyperlipidemia): Assessment and Plan: c/w statin Qualifiers: Hyperlipidemia type: unspecified Qualified Code(s): E78.5 - Hyperlipidemia, unspecified (4) Type 2 diabetes mellitus: Assessment and Plan: SSI while inpatient Qualifiers: Diabetes mellitus marine oil terminal superintendent insulin use: without marine oil terminal superintendent use Diabetes mellitus complication status: without complication Qualified Code(s): E11.9 - Type 2 diabetes mellitus without complications (5) HTN (hypertension): Assessment and Plan: Stable BP. c/w home medications Qualifiers: Hypertension type: primary hypertension Qualified Code(s): I10 - Essential (primary) hypertension (6) Postoperative anemia: Assessment and Plan: p/w Hb of 10, down to 8 post operatively. Monitor. Stable. She will need outpatient w/u for anemia given her age. D/w patient. No recent Colonoscopy. Had Cologuard as outpatient Internal Medicine - PN: Subj Subjective Interval history: Seen and examined. No overnight events. Pain is well controlled. Awaiting rehab placement Exam Constitutional Vital Signs, click to edit/add: Last Vital Signs Temp 97.7 F 07/09/24 09:00 Pulse 88 07/09/24 09:00 Resp 16 07/09/24 09:00 BP 136/83 07/09/24 09:00 Pulse Ox 93 L 07/09/24 09:00 O2 Del Method Room Air 07/09/24 09:00 O2 Flow Rate 1 07/08/24 06:00 Documenting provider has reviewed patient's vital signs: yes Common normals: no apparent distress and oriented x3 General appearance: cooperative Internal Medicine - PN: Obj Da Labs Labs: Laboratory Results - last 24 hr 07/08/24 07/08/24 07/08/24 11:20 16:48 20:16 WBC RBC Hgb Hct MCV MCH MCHC RDW Plt Count MPV Neut % (Auto) Lymph % (Auto) [place] % (Auto) Eos % (Auto) Baso % (Auto) Neut # (Auto) Lymph # (Auto) [place] # (Auto) Eos # (Auto) Baso # (Auto) Abs Immat Gran (auto) Imm/Tot Granulo (auto) Sodium Potassium Chloride Carbon Dioxide Anion Gap BUN Creatinine Est GFR ( Amer) Est GFR (Non-Af Amer) BUN/Creatinine Ratio Glucose Calcium Total Bilirubin AST ALT Alkaline Phosphatase Total Protein Albumin Globulin Albumin/Globulin Ratio POC Glucose 234 H 183 H 214 H 07/09/24 05:38 WBC 5.6 RBC 2.70 L Hgb 8.0 L Hct 24.3 L MCV 90.0 MCH 29.6 MCHC 32.9 RDW 12.9 Plt Count 156 MPV 10.6 Neut % (Auto) 63.3 Lymph % (Auto) 23.2 [place] % (Auto) 9.9 Eos % (Auto) 2.8 Baso % (Auto) 0.4 Neut # (Auto) 3.6 Lymph # (Auto) 1.3 [place] # (Auto) 0.6 Eos # (Auto) 0.2 Baso # (Auto) 0.0 Abs Immat Gran (auto) 0.02 Imm/Tot Granulo (auto) 0.4 Sodium 141 Potassium 4.2 Chloride 105 Carbon Dioxide 33.0 H Anion Gap 7.2 BUN 16.0 Creatinine 1.19 H Est GFR ( Amer) 55 L Est GFR (Non-Af Amer) 45 L BUN/Creatinine Ratio 13.4 Glucose 157 H Calcium 8.7 Total Bilirubin 0.5 AST 27 ALT 28 Alkaline Phosphatase 86 Total Protein 5.9 L Albumin 2.8 L Globulin 3.1 Albumin/Globulin Ratio 0.9 POC Glucose Urinary Catheter Management Urinary Catheter Management Urethral: Cath placed during this visit: no
--- NOTE | 2024-07-09 11:14 | CM.NOTE ---
Rounds made with Dr. Reyna. Dr. Reyna discussed lab results and need to follow up with family physician after SNF discharge for anemia. Namrata verbalizes understanding. Awaiting [facility] approval.
[2024-07-09] MEDS: INSULIN ASPART 300 UNIT/3 ML PEN SUBQ ×2 (11:35→22:06)
[2024-07-09 11:36] LABS: Glucometer 279 mg/dL (74-106)
[2024-07-09 11:41] VITALS: O2SAT 94
--- NOTE | 2024-07-09 13:55 | SWNOTE1 ---
ALONSO called and left message for Kiah at [facility].
[2024-07-09 16:10] LABS: Glucometer 176 mg/dL (74-106)
[2024-07-09 16:11] VITALS: BP 147/80; PULSE 88; TEMP 36.8; O2SAT 93
--- NOTE | 2024-07-09 16:19 | SWNOTE1 ---
ALONSO received a call back from Ale at [facility] and she stated they are good to go on there end, but [facility] needs the hospital to submit a C-9 from her hospital stay. ALONSO called Marlene from [facility] and left her a message as ALONSO does not know where to find C-9 form and hoping she can give some guidance.
[2024-07-09 20:03] VITALS: O2SAT 97
[2024-07-09 20:13] VITALS: BP 159/100; PULSE 102; TEMP 36.8; O2SAT 91
[2024-07-09 21:50] LABS: Glucometer 168 mg/dL (74-106)
[2024-07-09] MEDS: ATORVASTATIN CALCIUM 40 MG TABLET PO (22:05)
[2024-07-09] MEDS: ENOXAPARIN SODIUM 40 MG/0.4 ML SYRINGE SUBQ (22:05)
[2024-07-09] MEDS: GABAPENTIN 100 MG CAPSULE 200 MG PO (22:05)
[2024-07-10 05:15] VITALS: BP 154/84; PULSE 84; TEMP 36.4
[2024-07-10 05:50] LABS: Basophils Percent Auto 0.6 % (0.2-2.0); Immature Granulocytes Abs Auto 0.01 10^3/uL (0.00-0.03); Immature Granulocytes Pct Auto 0.2 % (0.0-0.5); Lymphocytes Absolute Auto 1.9 10^3/uL (1.2-3.8); Lymphocytes Percent Auto 28.4 % (20.5-60.0); Mean Corpuscular HGB Conc 33.3 g/dL (29.9-35.2); Mean Corpuscular Hemoglobin 29.9 pg (26.7-34.0); Mean Corpuscular Volume 89.7 fL (81.0-99.0); Mean Platelet Volume 10.4 fL (9.5-13.5); Monocytes Absolute Auto 0.6 10^3/uL (0.3-0.8); Monocytes Percent Auto 9.6 % (1.7-12.0); Neutrophils Percent Auto 61.2 % (43.0-75.0); Platelet Count 192 10^3/uL (150-450); Red Blood Count 3.01 10^6/uL (4.20-5.40); Red Cell Distribution Width 12.8 % (11.0-15.0); White Blood Count 6.6 10^3/uL (4.0-11.0)
[2024-07-10 05:58] LABS: Alanine Aminotransferase 24 U/L (14-59); Albumin Globulin Ratio 0.9; Albumin Level 2.9 g/dL (3.4-5.0); Alkaline Phosphatase 83 U/L (46-116); Anion Gap 9.5; Aspartate Amino Transferase 20 U/L (15-37); BUN Creatinine Ratio 12.7; Bilirubin Total 0.6 mg/dL (0.2-1.0); Carbon Dioxide 31.6 mmol/L (21.0-32.0); Chloride 104 mmol/L (98-107); Estimated GFR (African America >60 (>=60 mL/min/1.73m^2); Estimated GFR (Non-African Ame 50 (>=60 mL/min/1.73m^2); Globulin 3.4 g/dL; Glucose 136 mg/dL (74-106); Potassium 4.1 mmol/L (3.5-5.1); Sodium 141 mmol/L (136-145); Total Protein 6.3 g/dL (6.4-8.2)
--- NOTE | 2024-07-10 07:39 | CM.NOTE ---
Called and left message with Namrata Julien to send C9 form to be completed by Dr. Reyna so pt can transfer to [facility] for skilled.
[2024-07-10] MEDS: LOSARTAN POTASSIUM 25 MG TABLET PO (09:39)
[2024-07-10] MEDS: OXYCODONE HCL 5 MG TABLET PO ×2 (09:39→15:11)
--- NOTE | 2024-07-10 10:00 | SWNOTE1 ---
SW and case management call Ale at [facility] and she voiced that she does not need the C-9. She stated Sarai at [facility] spoke to [facility] and they need the hospital C9. SW and case management called Priya at [facility] and she voiced that Marlene is covering the case. We advised that we called Marlene this morning and she had a sick kid and we are waiting wheel and pinion inspector back and she was not sure if she was coming in today. Priya advised ALONSO and case management to call Marlene again and her voicemail should state who is covering for her. ALONSO and OLGA called Marlene again and voicemail did not say who was covering. ALONSO and OLGA called Priya back and she is working on finding out who is covering and reaching out to Marlene's boss. ALONSO and OLGA expressed the importance of this as the pt is medically stable for dc.
--- NOTE | 2024-07-10 10:21 | CM.NOTE ---
Rounds made with Dr. Reyna, awaiting to complete C9 paperwork and then pt can discharge to [facility] for skilled therapy.
--- NOTE | 2024-07-10 10:28 | PT.DAILY ---
Physical Therapy Daily Note PT Daily Note/Assess Start: 07/07/24 08:10 Freq: Status: Active Protocol: Document 07/10/24 10:15 ROLANDO (Rec: 07/10/24 10:28 [email or web address] [id number]) Physical Therapy Daily Note/Assessment Time In/Time Out Time In 09:10 Time Out 09:40 Pain In Pain N/A Pain Out Pain N/A Subjective Subjective Pt supine upon arrival. Agreeable to PT. Rates L hip pain 5-6/10 at rest. Nursing aware and will be medicating pt. Therapeutic Exercise Time Therapeutic Exercise 8 Minutes (minutes) Therapeutic Exercise 1 Units Therapeutic Exercise Treatment Therapeutic Exercise Pt instructed to perform seated ex in BS chair 10x ea. Treatment Difficulty with L hip flex and LAQ. Increased time needed for ex. Therapeutic Activity Time Therapeutic Activity 15 Minutes (minutes) Therapeutic Activity 1 Units Therapeutic Activity Treatment Bed Mobility Ability Minimum Assist Chair Transfer Contact Guard Assist Ability Therapeutic Activity Pt supine>sit with increased time needed to advance L Comments LE with Jennie. Sits EOB unsupported without any outside assistance. Sit>stand CGA for safety. Pt amb 30' with RW, CGA with TTWB. Increased time needed to amb around room to BS chair. Pt remains in BS chair upon completion with call light within reach and needs met. Total Physical Therapy Time Total Therapy 23 Minutes Total Physical 2 Therapy Units Summary Daily Note Summary Increased time needed for ex, gait and transfers due to L hip pain/apprehension. Improved gait duration but cont to have increased pain. Pt is medicated at end of session.
--- NOTE | 2024-07-10 10:37 | SWNOTE1 ---
Case managment spoke with Marlene from [facility] and she was able to guide CM with C9 form. CM faxed C9 form to Marlene. Marlene will review and then if approved pt will be able to discharge.
[2024-07-10 11:41] LABS: Glucometer 254 mg/dL (74-106)
[2024-07-10] MEDS: INSULIN ASPART 300 UNIT/3 ML PEN SUBQ (12:01)
--- NOTE | 2024-07-10 13:33 | P.IMPN_ITS ---
Progress Note: A&P Assessment and Plan (1) Intertrochanteric fracture of left femur: Assessment and Plan: s/p surgery. POD #4. Still awaiting approval from insurance to go to rehab Qualifiers: Encounter type: subsequent encounter Fracture type: closed Fracture alignment: displaced Fracture healing: with routine healing Qualified Code(s): S72.142D - Displaced intertrochanteric fracture of left femur, subsequent encounter for closed fracture with routine healing (2) Fall: Assessment and Plan: Mechanical fall resulting in Hip fx. Fell at work. S/p surgery. Pain is controlled. Qualifiers: Encounter type: subsequent encounter Qualified Code(s): W19.XXXD - Unspecified fall, subsequent encounter (3) HLD (hyperlipidemia): Assessment and Plan: c/w statin Qualifiers: Hyperlipidemia type: unspecified Qualified Code(s): E78.5 - Hyperlipidemia, unspecified (4) Type 2 diabetes mellitus: Assessment and Plan: SSI while inpatient Qualifiers: Diabetes mellitus care home insulin use: without exterminator helper termite use Diabetes mellitus complication status: without complication Qualified Code(s): E11.9 - Type 2 diabetes mellitus without complications (5) HTN (hypertension): Assessment and Plan: Stable BP. c/w home medications Qualifiers: Hypertension type: primary hypertension Qualified Code(s): I10 - Essential (primary) hypertension (6) Postoperative anemia: Assessment and Plan: p/w Hb of 10, down to 8 post operatively. Stable now. She will need outpatient w/u for anemia given her age. D/w patient. No recent Colonoscopy. Had Cologuard as outpatient Internal Medicine - PN: Subj Subjective Interval history: Seen and examined. No overnight events. Exam Constitutional Vital Signs, click to edit/add: Last Vital Signs Temp 97.6 F 07/10/24 05:15 Pulse 84 07/10/24 05:15 Resp 18 07/10/24 08:00 BP 154/84 H 07/10/24 05:15 Pulse Ox 91 L 07/09/24 20:13 O2 Del Method Room Air 07/09/24 20:13 O2 Flow Rate 1 07/08/24 06:00 Documenting provider has reviewed patient's vital signs: yes Common normals: no apparent distress and oriented x3 General appearance: cooperative Internal Medicine - PN: Obj Da Labs Labs: Laboratory Results - last 24 hr 07/09/24 07/09/24 07/10/24 16:09 21:50 05:11 WBC 6.6 RBC 3.01 L Hgb 9.0 L Hct 27.0 L MCV 89.7 MCH 29.9 MCHC 33.3 RDW 12.8 Plt Count 192 MPV 10.4 Neut % (Auto) 61.2 Lymph % (Auto) 28.4 [place] % (Auto) 9.6 Eos % (Auto) 0.0 L Baso % (Auto) 0.6 Neut # (Auto) 4.0 Lymph # (Auto) 1.9 [place] # (Auto) 0.6 Eos # (Auto) 0.0 Baso # (Auto) 0.0 Abs Immat Gran (auto) 0.01 Imm/Tot Granulo (auto) 0.2 Sodium 141 Potassium 4.1 Chloride 104 Carbon Dioxide 31.6 Anion Gap 9.5 BUN 14.0 Creatinine 1.10 H Est GFR ( Amer) >60 Est GFR (Non-Af Amer) 50 L BUN/Creatinine Ratio 12.7 Glucose 136 H Calcium 9.0 Total Bilirubin 0.6 AST 20 ALT 24 Alkaline Phosphatase 83 Total Protein 6.3 L Albumin 2.9 L Globulin 3.4 Albumin/Globulin Ratio 0.9 POC Glucose 176 H 168 H 07/10/24 11:40 WBC RBC Hgb Hct MCV MCH MCHC RDW Plt Count MPV Neut % (Auto) Lymph % (Auto) [place] % (Auto) Eos % (Auto) Baso % (Auto) Neut # (Auto) Lymph # (Auto) [place] # (Auto) Eos # (Auto) Baso # (Auto) Abs Immat Gran (auto) Imm/Tot Granulo (auto) Sodium Potassium Chloride Carbon Dioxide Anion Gap BUN Creatinine Est GFR ( Amer) Est GFR (Non-Af Amer) BUN/Creatinine Ratio Glucose Calcium Total Bilirubin AST ALT Alkaline Phosphatase Total Protein Albumin Globulin Albumin/Globulin Ratio POC Glucose 254 H Urinary Catheter Management Urinary Catheter Management Urethral: Cath placed during this visit: no
[2024-07-10 13:48] VITALS: BP 150/88; PULSE 94; TEMP 36.5; O2SAT 95
[2024-07-10] MEDS: ACETAMINOPHEN 325 MG TABLET 650 MG PO (13:52)
--- NOTE | 2024-07-10 14:06 | P.DS_ITS ---
DS: Providers Provider Date of admission: 07/06/24 17:10 Primary care physician: Non-Staff PhysicianMD Admitting clinician: Shaikh Axel Attending physician on admission: Shaikh Axel Consults: 07/06/24 12:14 Consult to Orthopedics Routine Consulting Provider: Jonas Adrian Reason for consultation: Hip fracture Occupational Therapy Eval and Treat Routine Reason for consultation: Ambulatory dysfunction/weakness Physical Therapy Eval and Treat Routine Reason for consultation: Ambulatory dysfunction/weakness 07/07/24 06:39 Physical Therapy Eval and Treat Routine Reason for consultation: status post L Hip IM Nail Has provider been notified: No Attending physician on discharge: Shaikh Axel Discharging clinician: Shaikh Axel Anticipated date of discharge: 07/10/24 DS: Diagnosis Discharge Diagnosis (1) Intertrochanteric fracture of left femur: Qualifiers: Encounter type: subsequent encounter Fracture type: closed Fracture alignment: displaced Fracture healing: with routine healing Qualified Code(s): S72.142D - Displaced intertrochanteric fracture of left femur, subsequent encounter for closed fracture with routine healing (2) Fall: Qualifiers: Encounter type: subsequent encounter Qualified Code(s): W19.XXXD - Unspecified fall, subsequent encounter (3) HLD (hyperlipidemia): Qualifiers: Hyperlipidemia type: unspecified Qualified Code(s): E78.5 - Hyperlipi demia, unspecified (4) Type 2 diabetes mellitus: Qualifiers: Diabetes mellitus fci insulin use: without terminal superintendent use Diabetes mellitus complication status: without complication Qualified Code(s): E11.9 - Type 2 diabetes mellitus without complications (5) HTN (hypertension): Qualifiers: Hypertension type: primary hypertension Qualified Code(s): I10 - Essential (primary) hypertension (6) Postoperative anemia: DS: Summary Hospital Course Hospital Course: 64 y o female fell while shoveling snow at work. She could not get up afterwards and was brought over via EMS. Patient denies head trauma, LOC. Her only complaint was left hip pain and work up in ED revealed mildly impacted intertrochanteric fracture. Orthopedic consulted and she underwent surgery on . She developed mild post op anemia but other vergara her post op course was unremarkable. She was eval by PT/OT and is stable for discharge to rehab. She will need f/u with Orthopedics and PCP Status at Discharge Functional status at discharge: uses cane/walker Overall status at discharge: patient is progressing back to baseline Time Spent with Patient Time attestation: Total time spent providing and/or coordinating discharge services: Exam Constitutional Vital Signs, click to edit/add: Last Vital Signs Temp 97.7 F 07/10/24 13:48 Pulse 94 H 07/10/24 13:48 Resp 18 07/10/24 13:48 BP 150/88 H 07/10/24 13:48 Pulse Ox 95 07/10/24 13:48 O2 Del Method Room Air 07/10/24 13:48 O2 Flow Rate 1 07/08/24 06:00 DS: Data Data Completed and Pending Labs on day of discharge: Labs from last 24 hours 07/10/24 07/10/24 07/09/24 11:40 05:11 21:50 WBC 6.6 RBC 3.01 L Hgb 9.0 L Hct 27.0 L MCV 89.7 MCH 29.9 MCHC 33.3 RDW 12.8 Plt Count 192 MPV 10.4 Neut % (Auto) 61.2 Lymph % (Auto) 28.4 [place] % (Auto) 9.6 Eos % (Auto) 0.0 L Baso % (Auto) 0.6 Neut # (Auto) 4.0 Lymph # (Auto) 1.9 [place] # (Auto) 0.6 Eos # (Auto) 0.0 Baso # (Auto) 0.0 Abs Immat Gran (auto) 0.01 Imm/Tot Granulo (auto) 0.2 Sodium 141 Potassium 4.1 Chloride 104 Carbon Dioxide 31.6 Anion Gap 9.5 BUN 14.0 Creatinine 1.10 H Est GFR ( Amer) >60 Est GFR (Non-Af Amer) 50 L BUN/Creatinine Ratio 12.7 Glucose 136 H Calcium 9.0 Total Bilirubin 0.6 AST 20 ALT 24 Alkaline Phosphatase 83 Total Protein 6.3 L Albumin 2.9 L Globulin 3.4 Albumin/Globulin Ratio 0.9 POC Glucose 254 H 168 H 07/09/24 16:09 WBC RBC Hgb Hct MCV MCH MCHC RDW Plt Count MPV Neut % (Auto) Lymph % (Auto) [place] % (Auto) Eos % (Auto) Baso % (Auto) Neut # (Auto) Lymph # (Auto) [place] # (Auto) Eos # (Auto) Baso # (Auto) Abs Immat Gran (auto) Imm/Tot Granulo (auto) Sodium Potassium Chloride Carbon Dioxide Anion Gap BUN Creatinine Est GFR ( Amer) Est GFR (Non-Af Amer) BUN/Creatinine Ratio Glucose Calcium Total Bilirubin AST ALT Alkaline Phosphatase Total Protein Albumin Globulin Albumin/Globulin Ratio POC Glucose 176 H Discharge Plan Discharge Disposition: Xfer SNF Condition: Good Discharge Medications: Continued atorvastatin 40 mg tablet 40 mg PO DAILY gabapentin 100 mg capsule 200 mg PO BEDTIME metformin 500 mg tablet 1,000 mg PO BID losartan 25 mg tablet 25 mg PO DAILY Print Language: Czech Forms: Portal Instructions Follow Up Appointments: Follow up with Dr Adrian in 3 weeks for staple removal and xray, prefers [facility]
--- NOTE | 2024-07-10 14:36 | SWNOTE1 ---
ALONSO received call from Ale at [facility] and they are good to accept pt and have received everything they need. ALONSO let nursing and Dr. Reyna know. Pt was able to sit up in chair and is alright with wheelchair transport. ALONSO called trips and they are able to get pt at 4:15. ALONSO notified nurse, pt, and Ale at [facility] of time. ALONSO completed HENS online. ALONSO faxed dc med rec, dc summary, PT/OT from 07/09 and today, labs, and vitals from today to [facility].
--- NOTE | 2024-07-10 15:44 | PC.NURSE ---
Attempted to call report to [place] at [phone]. No one answered.
[2024-07-10 16:04] VITALS: O2SAT 97
== END 2024-07-10 16:07 | DRG 481 ==
LOC: MS 07-07 06:40
PROVIDERS: Emergency Medicine; Orthopaedic Surgery; Admitting Provider Internal Medicine; Visit Provider Internal Medicine
PROC: 0QS736Z Reposition Left Upper Femur with Intramedullary Internal Fixation Device, Percutaneous Approach (ICD-10-PCS; principal; 2024-07-06 14:30)
DX: S72.142A Displaced intertrochanteric fracture of left femur, initial encounter for closed fracture (principal); D62 Acute posthemorrhagic anemia; W00.0XXA Fall on same level due to ice and snow, initial encounter; E78.5 Hyperlipidemia, unspecified; E11.9 Type 2 diabetes mellitus without complications; I10 Essential (primary) hypertension; Z98.891 History of uterine scar from previous surgery; Z79.84 Long term (current) use of oral hypoglycemic drugs
CPT/HCPCS: 36415; 73502; 76000; 80048; 80053; 82948; 85025; 85610; 85730; 93005; 94761; 96374; 97110; 97162; 97165; 97530; 97535; 99285; C1713; C1776; J0690; J1650; J2250; J2270; J2405; J2704; J3010